=== PATIENT | female | born 1965 | race African-American/Black ===

== ENCOUNTER 2021-08-26 15:06 | Emergency (ER) | payer OTHER, SELFPAY ==
--- NOTE | ~2021-08-26 | CT_ITS ---
EXAMINATION: CT chest abdomen pelvis w con DATE: 08/26/2021 17:25 INDICATION: Right chest and abdominal pain. Fall. TECHNIQUE: Computed tomography (CT) of the chest, abdomen, and pelvis was performed with 100 mL Omnip aque 350 intravenous contrast. Automated exposure control and iterative reconstruction technique were employed. The dose-length product was 566.82 mGy-cm. COMPARISON: None FINDINGS: CHEST CT: The lungs demonstrate mild atelectasis. No pleural effusion. The heart size is normal. There are rosemarie nary artery calcifications. No pericardial effusion. There is severe cervical and mid thoracic spondy losis. ABDOMEN/PELVIS CT: The liver, gallbladder, spleen, pancreas, adrenal glands, and right kidney are normal. There is a 9 m m cyst in left kidney. There is diverticulosis of the colon without evidence of diverticulitis. There are no dilated loops of bowel. The appendix is normal. There are no pathologically enlarged lymph no elisa. There is no free intraperitoneal fluid. There is mild lumbar spondylosis. IMPRESSION: 1. No posttraumatic findings. Reviewed, dictated and finalized at location A. POLISHER
--- NOTE | ~2021-08-26 | XR_ITS ---
EXAMINATION: XR humerus RT DATE: 08/26/2021 17:18 INDICATION: Right humerus injury and pain. TECHNIQUE: 2 views of right humerus were obtained. COMPARISON: None. FINDINGS: Bone alignment is normal. No fracture. There is mild osteoarthritis of glenohumeral joint a nd severe osteoarthritis of acromioclavicular joint. IMPRESSION: 1. Polyarticular osteoarthritis. Reviewed, dictated and finalized at location A. D SERVICE ANALYST
[2021-08-26 15:09] VITALS: BP 138/87; PULSE 70; RESP 14; TEMP 36.7; O2SAT 100
--- NOTE | 2021-08-26 16:17 | ED.GENADULT ---
HPI - General Adult General Chief complaint: Fall Stated complaint: fall/ right upper arm/right side pain Time Seen by Provider: 08/26/21 15:12 Source: patient Mode of arrival: ambulatory Limitations: no limitations History of Present Illness HPI narrative: Patient presents for evaluation of pain following a fall on Wednesday of last week. She states she slipped on the ice and fell on her right side. She did not hit her head or have loss of consciousness. She reports bruising to the right upper arm and rates pain in that area as 7 out of 10 in severity. She also reports pain in the left lateral ribs and left pelvis that she rates 9/10 in severity. She states that pain in the ribs is worse with deep inspiration. She states she feels short of breath. She has a chronic cough that she attributes to smoking marijuana. She has been taking aspirin without considerable improvement in her pain. No additional complaints or concerns. Related Data Home Medications Medication Instructions Recorded Confirmed No Home Medications 08/26/21 08/26/21 Allergies Allergy/AdvReac Type Severity Reaction Status Date / Time No Known Allergies Allergy Verified 08/26/21 15:16 Review of Systems Review of Systems: CONSTITUTIONAL: Denies fever, chills, or sweats. EYES: Denies visual changes, redness, or discharge. ENT: Denies rhinorrhea, congestion, sore throat, or otalgia. CARDIOVASCULAR: Reports right sided rib pain. Denies chest pain otherwise. Denies palpitations, or edema. RESPIRATORY: Denies cough or dyspnea. GASTROINTESTINAL: Denies abdominal pain, nausea, vomiting, or diarrhea. GENITOURINARY: Denies dysuria or hematuria. SKIN: Denies rash or itching. MUSCULOSKELETAL: Reports pain in right lateral pelvis NEUROLOGIC: Denies headache, numbness, dizziness, or weakness. PSYCHIATRIC: Denies anxiety or depression. [facility] Past Medical History Medical History (Updated 08/26/21 @ 17:45 by Jr Ramirez, SHEELA, MORE) No pertinent past medical history Surgical History Surgical History No pertinent past surgical history Family History Family History Mother Family history non-contributory Social History Social History (Updated 08/26/21 @ 16:23 by Jr Ramirez, [facility], ) Smoking status: Current some day smoker Alcohol intake: current Alcohol use details: social Substance use: current Substance use type: marijuana Living arrangements: alone Gender identity (if verbalized by the patient): Female Sexual Orientation (if Verbalized by the Patient): Straight or Heterosexual Spiritual care concerns: No Exam Narrative: GENERAL: Well-appearing, well-nourished, and in no acute distress. HEAD: Normocephalic, atraumatic. EYES: PERRLA and EOMI. ENT: Nares clear, no rhinorrhea or epistaxis. Mucous membranes moist. Oropharynx without tonsillar hypertrophy exudate or other lesions. Bilateral TMs pearly smith nonbulging NECK: Supple. No adenopathy or masses. No carotid bruits or JVD CHEST: Right lateral ribs are tender to palpation. Clear to auscultation. No respiratory distress. No wheezes rales or rhonchi HEART: Regular rate and rhythm. No murmur heard. Normal peripheral pulses. ABDOMEN: Soft, tenderness noted to RUQ without rebound or guarding, nondistended, normal active bowel sounds. There is also tenderness noted over right lateral pelvis EXTREMITIES: Normal range of motion. No edema. SKIN: Ecchymosis noted to right upper arm. Skin is warm, dry, no rash. NEURO: No focal deficits. Alert and oriented x3. PSYCH: Normal mood and affect. Course Course Emergency Course: This is a 48-year-old female who presented with complaints of pain following a fall on Wednesday. On physical exam she was tender over ribs and right upper quadrant as well as over pelvis. X-ray was obtained of the right humerus that
[2021-08-26 17:00] LABS: Basophils Percent Auto 0.6 % (0.2-1.2); Eosinophils Percent Auto 0.6 % (0-4.4); Hematocrit 41.2 % (37.0-47.0); Hemoglobin 13.7 g/dL (12.0-15.0); Immature Granulocyte Absolute 0.01 K/mm3 (0.00-0.031); Immature Granulocyte Percent A 0.1 % (0-0.5); Lymphocytes Absolute Auto 3.15 K/mm3 (0.9-3.2); Lymphocytes Percent Auto 46.2 % (18.3-44.2); Mean Corpuscular HGB Conc 33.3 g/dl (32-36); Mean Corpuscular Hemoglobin 28.2 pg (26-34); Mean Corpuscular Volume 84.9 fl (80-100); Monocytes Absolute Auto 0.7 K/mm3 (0.1-0.6); Monocytes Percent Auto 10.1 % (2.6-8.5); Neutrophils Absolute Auto 2.9 K/mm3 (1.3-6.7); Neutrophils Percent Auto 42.4 % (45.5-73.1); Platelet Count Result 320 k/mm3 (150-375); Red Blood Count 4.85 M/mm3 (4.2-5.4); Red Cell Distribution Width 13.8 % (11.5-14.5); White Blood Count 6.8 K/mm3 (4.5-10.0)
[2021-08-26 17:06] LABS: Alanine Aminotransferase 17 U/L (4-35); Albumin Level 4.7 g/dL (3.5-5.1); Alkaline Phosphatase 63 U/L (38-126); Anion Gap 8 mmol/L (8-16); Aspartate Amino Transferase 30 U/L (14-36); Bilirubin,Total 0.1 mg/dL (0.2-1.3); Blood Urea Nitrogen 15 mg/dL (7-17); Calcium 9.6 mg/dL (8.4-10.2); Carbon Dioxide 27 mmol/L (22-30); Chloride 103 mmol/L (98-107); Estimated CRCL calculation 51 ml/min; Estimated Glomerular Filt Rate > 60; Glucose 104 mg/dL (65-110); Lipase 155 U/L (23-300); Potassium 3.8 mmol/L (3.4-5.0); Sodium 138 mmol/L (137-145)
[2021-08-26 17:51] LABS: Prothrombin Time 12.9 Seconds (11.1-14.7)
[2021-08-26 17:52] LABS: Partial Thromboplastin Time 30.9 SECONDS (22.3-36.8)
[2021-08-26 18:06] LABS: Add Urine Microscopic? YES; Appearance Urine Clear (Clear); Bilirubin Urine Negative (Negative); Blood Urine Negative (Negative); Color Urine Colorless (Yellow); Glucose Urine UA Negative (Negative); Ketones Urine Negative (Negative); Leukocyte Esterase Ur Trace LEU/UL (Negative); Nitrate Urine Negative (Negative); Protein Urine Negative (Negative); RBC Urine 0-2 /hpf (0-2); Squamous Epithelial Cell Urine Rare /hpf (Few); Urobilinogen Urine Negative mg/dL (<2.0); WBC Urine 0-3 /hpf
[2021-08-26 18:08] LABS: Specific Grav Ur 1.033 (1.001-1.035)
== END 2021-08-26 18:02 | disposition home or self-care (01) ==
PROVIDERS: Emergency Provider Nurse Practitioner
DX: S40.021A Contusion of right upper arm, initial encounter (principal); S30.1XXA Contusion of abdominal wall, initial encounter; S30.0XXA Contusion of lower back and pelvis, initial encounter; S20.211A Contusion of right front wall of thorax, initial encounter; F17.200 Nicotine dependence, unspecified, uncomplicated; M19.011 Primary osteoarthritis, right shoulder; W00.0XXA Fall on same level due to ice and snow, initial encounter
CPT/HCPCS: 36415; 71260; 73060; 74177; 80053; 81001; 83690; 85025; 85610; 85730; 99284; Q9967

== ENCOUNTER → 2023-09-09 10:23 | Outpatient (CLI) | payer OTHER, SELFPAY ==
--- NOTE | ~2023-09-09 | MM_ITS ---
EXAMINATION: MM screening marco BI w argenis HISTORY: Screening TECHNIQUE: Craniocaudal and mediolateral oblique 3-D tomosynthesis images were obtained and synthetic 2-D images were generated. CAD analysis was submitted and interpreted. COMPARISON: No prior mammogram is available for comparison at this institution. BREAST PARENCHYMAL COMPOSITION: Not dense: There are scattered areas of fibroglandular density. FINDINGS: There is no mammographic evidence for malignancy in the right breast. There is a small mass in the lower central aspect of the left breast, middle third. IMPRESSION: 1. Small left breast mass. 2. Additional mammographic views and possible breast ultrasound are recommended. BI-RADS Category 0: Incomplete: Needs additional imaging evaluation. Reviewed, dictated and finalized at location A. UP TECHNICIAN IMPRESSION: 1. Small left breast mass. 2. Additional mammographic views and possible breast ultrasound are recommended . BI-RADS Category 0: Incomplete: Needs additional imaging evaluation.
== END ==
PROVIDERS: PCP Physician Assistant; Visit Provider Physician Assistant
DX: Z12.31 Encounter for screening mammogram for malignant neoplasm of breast (principal); R92.8 Other abnormal and inconclusive findings on diagnostic imaging of breast
CPT/HCPCS: 77063; 77067

== ENCOUNTER 2023-11-15 09:35 | Outpatient (CLI) | payer OTHER, SELFPAY ==
--- NOTE | ~2023-11-15 | MMUS_ITS ---
EXAMINATION: MM diagnostic marco LT w argenis, US breast LT limited HISTORY: Small left breast mass reported in the lower central breasts at mid depth on September 09 24 screening mammogram examination TECHNIQUE: Additional 3-D tomosynthesis images of the left breast were performed and synthetic 2-D im ages were generated. CAD analysis was submitted and interpreted. High resolution limited left breast ultrasound was performed. COMPARISON: September 09, 2023 bilateral screening mammogram FINDINGS: MAMMOGRAPHIC FINDINGS: No reproducible suspicious mammographic mass lesion is evident. ULTRASOUND: . 4:00 7 cm from nipple: Well-circumscribed 3.3 x 6.1 x 4.9 mm complex lesion with through transmiss ion and posterior enhancement, no internal vascularity, benign in appearance 5:00 4 cm from nipple: Probable benign 2.8 x 4.5 mm lymph node Subareolar area: Septated 3.5 x 5.3 x 6 mm cyst No suspicious mass or shadowing is detected. IMPRESSION: 1. Benign findings 2. Routine annual mammographic screening is recommended BI-RADS Category 2: Benign finding(s). Reviewed, dictated and finalized at location A. IMPRESSION: 1. Benign findings 2. Routine annual mammographic screening is recommended BI-RADS Category 2: Benign finding(s).
== END 2023-11-15 09:36 ==
PROVIDERS: PCP Physician Assistant; Visit Provider Physician Assistant
DX: R92.8 Other abnormal and inconclusive findings on diagnostic imaging of breast (principal)
CPT/HCPCS: 76642; 77061; 77065; G0279

== ENCOUNTER 2024-04-20 09:05 | Emergency (ER) | payer OTHER, SELFPAY ==
--- NOTE | ~2024-04-20 | XR_ITS ---
XR knee LT min 4V Ordering provider: Christi Naidu PA-C History: . fall 2 days ago, pain . Comparison: None. FINDINGS: BONES: No acute fracture or dislocation. JOINT SPACES: Normal. Chondrocalcinosis seen in the medial and lateral menisci. SOFT TISSUES: Normal. IMPRESSION: No acute osseous abnormality left knee. Chondrocalcinosis. Reviewed, dictated and finalized at location A.
--- NOTE | ~2024-04-20 | CT_ITS ---
CT brain wo con Ordering provider: Christi Naidu PA-C History: 58 years Female with . fall, hi . Comparison: None. Technique: CT of the head without contrast. Radiation reduction technique utilized. The dose-length product was 605.33 mGy-cm. FINDINGS: BRAIN PARENCHYMA AND CSF SPACES: Old lacunar infarct in the right basal ganglia. No midline shift, ma ss effect or hemorrhage. The brain parenchyma and CSF spaces are otherwise normal. VISUALIZED PARANASAL SINUSES: Bilateral maxillary sinus disease. Bilateral ethmoid sinus disease. MASTOIDS: Well aerated. BONES: The bones appear intact. SOFT TISSUES: Visualized nasopharynx is normal. Superficial soft tissues are normal. IMPRESSION: No acute intracranial findings. Reviewed, dictated and finalized at location A.
--- NOTE | ~2024-04-20 | CT_ITS ---
CT lumbar spine wo con Ordering provider: Christi Naidu PA-C History: 58 years Female with . lbp s/p fall . Comparison: None. Technique: CT lumbar spine without contrast. Automated exposure control and iterative reconstruction technique were employed. The dose-length product was 410.13 mGy-cm. FINDINGS: VERTEBRAE: Normal height and alignment. No subluxation or visible acute fracture. DISC SPACES: Well maintained. T12-L1: No stenosis. L1-L2: No stenosis. L2-L3: No stenosis. Diffuse disc bulge. Slight narrowing of the foramina more on the right side L3-L4: No stenosis. Diffuse disc bulge with bilateral narrowing of the foramina. Left narrowing root compression. Bilateral facet joint disease. L4-L5: No stenosis. Diffuse disc bulge. Bilateral facet joint disease. L5-S1: No stenosis. Diffuse disc bulge with bilateral narrowing of the foramina and left nerve root compression. Bilateral facet joint disease. PARASPINOUS SOFT TISSUES: Mild atheromatous disease of the abdominal aorta. Bilateral sacroiliacs. IMPRESSION: No acute osseous abnormality. Reviewed, dictated and finalized at location A.
[2024-04-20 09:10] VITALS: BP 165/85; PULSE 105; RESP 18; TEMP 36.6; O2SAT 100
--- NOTE | 2024-04-20 09:21 | ED.FALL ---
HPI - Fall General Chief Complaint: Fall Stated Complaint: fall Time Seen by Provider: 04/20/24 09:09 Source: patient Mode of arrival: ambulatory Limitations: no limitations History of Present Illness HPI Narrative: Patient is a 58 y/o female who presents to the ED with c/o Fall. Patient reports she slipped and fell at work 2 days ago. She landed on her left knee. she then fell backwards onto her. She did hit side of her head on a metal bar. Denied LOC. She complains of pain to her left knee and lower back. Has been using Goody Powder at home and icing her knee without much relief. Has trouble walking due to the knee pain. Denies numbness, headaches, dizziness, bowel or bladder incontinence, saddle anesthesia. Related Data Allergies Allergy/AdvReac Type Severity Reaction Status Date / Time No Known Allergies Allergy Verified 09/24/21 14:17 Review of Systems Review of Systems: All systems reviewed & are unremarkable except as noted in HPI. All systems reviewed & are unremarkable except as noted in HPI and below PMFSH Past Medical History Medical History No pertinent past medical history Surgical History Surgical History No pertinent past surgical history Family History Family History Mother Family history non-contributory Social History Social History Smoking status: Current some day smoker Alcohol intake: current Alcohol use details: social Substance use: current Substance use type: marijuana Living arrangements: alone Gender identity (if verbalized by the patient): Female Sexual Orientation (if Verbalized by the Patient): Straight or Heterosexual Spiritual care concerns: No Exam Narrative: GENERAL: Well appearing, well-nourished, non-toxic, in no acute distress. HEAD: Normocephalic, atraumatic. RESPIRATORY: Airway patent, respirations nonlabored. Clear to auscultation bilaterally, no rales, rhonchi, wheezing. CARDIOVASCULAR: Regular rate and rhythm without murmurs, rubs, or gallops. peripheral pulses are intact and easily palpable. MUSCULOSKELETAL: No gross deformities. Tenderness palpation throughout lumbosacral region. no significant midline spinal tenderness. No palpable bony deformities. Sensation intact. Mild TTP throughout superior knee joint space. No significant swelling. Limited flexion ROM of L knee d/t pain. SKIN: Warm, dry, normal color. NEURO: A&O X3. Speech clear. Cranial nerves II-XII grossly intact. No ataxic movements. PSYCHIATRIC: Anxious, tearful. Normal interaction. Course Vital Signs Vital signs: Vital Signs Temperature 98 F 04/20/24 09:10 Pulse Rate 105 H 04/20/24 09:10 Respiratory Rate 18 04/20/24 09:10 Blood Pressure 165/85 H 04/20/24 09:10 Pulse Oximetry 100 04/20/24 09:10 Oxygen Delivery Room Air 04/20/24 09:10 Temperature 98 F 04/20/24 09:10 Pulse Rate 105 H 04/20/24 09:10 Respiratory Rate 18 04/20/24 09:10 Blood Pressure 165/85 H 04/20/24 09:10 Pulse Oximetry 100 04/20/24 09:10 Oxygen Delivery Room Air 04/20/24 09:10 MDM - Fall MDM Narrative Medical decision making narrative: Patient presented to ED status post ground level mechanical fall 2 days ago. Vital signs are stable. Patient neurologically/neurovascularly intact. She did hit her head in the fall. CT brain was obtained and negative. C-spine cleared by myself. No neck pain reported, no tenderness on exam. L knee XR negative. No fx, dislocation, or joint effusion. CT lumbar spine. Patient?s injury is consistent with musculoskeletal etiology. No signs of neurologic or vascular compromise on physical examination. Compartments are soft without signs of compartment syndrome. Consistent
[2024-04-20] MEDS: KETOROLAC (*BKC) 60 MG/2 ML VIAL IM (09:40)
[2024-04-20] MEDS: ACETAMINOPHEN 500 MG TABLET 1000 MG PO (09:40)
[2024-04-20 11:32] VITALS: BP 134/76; PULSE 68; RESP 18; O2SAT 100
== END 2024-04-20 11:33 | disposition home or self-care (01) ==
PROVIDERS: Emergency Provider Physician Assistant
DX: S86.912A Strain of unspecified muscle(s) and tendon(s) at lower leg level, left leg, initial encounter (principal); S39.012A Strain of muscle, fascia and tendon of lower back, initial encounter; S09.90XA Unspecified injury of head, initial encounter; W01.198A Fall on same level from slipping, tripping and stumbling with subsequent striking against other object, initial encounter; M11.262 Other chondrocalcinosis, left knee
CPT/HCPCS: 70450; 72131; 73564; 96372; 99284; A9270; J1885

== ENCOUNTER 2024-05-02 11:41 | Emergency (ER) | payer OTHER, SELFPAY ==
[2024-05-02 11:45] VITALS: BP 141/76; PULSE 90; RESP 18; TEMP 36.5; O2SAT 100
--- NOTE | 2024-05-02 12:53 | ED.GENADULT ---
HPI - General Adult General Chief complaint: Back Pain/Injury Stated complaint: back pain Time Seen by Provider: 05/02/24 12:09 History of Present Illness HPI narrative: 58-year-old female presented emergency department for evaluation for persistent back pain. Patient was evaluated to the emergency department last week for back pain. Patient states she has been taking Tylenol for her persistent back pain. Patient states her knee pain from the initial injury has improved but patient still describes left lower back pain that does radiate down her left buttock down her left thigh. Patient has been taking some aspirin. Patient is opposed to narcotic pain medication. She is tearful on arrival due to pain. Related Data Allergies Allergy/AdvReac Type Severity Reaction Status Date / Time No Known Allergies Allergy Verified 05/02/24 11:43 Review of Systems Review of Systems: All systems reviewed & are unremarkable except as noted in HPI and below PMFSH Past Medical History Medical History No pertinent past medical history Surgical History Surgical History No pertinent past surgical history Family History Family History Mother Family history non-contributory Social History Social History Smoking status: Current some day smoker Alcohol intake: current Alcohol use details: social Substance use: current Substance use type: marijuana Living arrangements: alone Gender identity (if verbalized by the patient): Female Sexual Orientation (if Verbalized by the Patient): Straight or Heterosexual Spiritual care concerns: No Exam Narrative: APPEARANCE: uncomfortable appearing EYES: PERRLA/EOMI, conjunctivae clear. NOSE: Normal no drainage EARS:TMS clear with good light reflex. THROAT: Pharynx clear, no exudate. NECK: Supple. No adenopathy, no masses. RESPIRATORY: Airway patent, respirations nonlabored. Clear to auscultation bilaterally, no rales, rhonchi, wheezing. CARDIOVASCULAR: Regular rate and rhythm without murmurs rubs or gallops. ABDOMINAL: Soft, nontender, nondistended, normal bowel sounds MUSCULOSKELETAL: left lower back pain radiates to left hip with tenderness over left buttock NEURO: Alert. Cranial nerves II through XII intact. Grossly intact SKIN: Warm, dry. Normal Color Course Vital Signs Vital signs: Vital Signs Temperature 97.7 F 05/02/24 11:45 Pulse Rate 90 05/02/24 11:45 Respiratory Rate 18 05/02/24 11:45 Blood Pressure 141/76 H 05/02/24 11:45 Pulse Oximetry 100 05/02/24 11:45 Temperature 98.3 F 05/02/24 13:15 Pulse Rate 88 05/02/24 13:15 Respiratory Rate 17 05/02/24 13:15 Blood Pressure 137/62 05/02/24 13:15 Pulse Oximetry 100 05/02/24 13:15 Medical Decision Making MDM Narrative Medical decision making narrative: 58-year-old female present to the emergency department for evaluation for lower back pain. Patient denies initial falls or injuries. Patient initial CT showed no acute fracture dislocation. Patient is being started on Medrol Dosepak for suspected sciatica. Patient is also advised to take Flexeril and distal Tylenol for pain control. All questions concerns were addressed patient was comfortable with plan for discharge and close follow-up. Patient was encouraged close follow-up with her primary care physician. Differential Diagnosis Differential Diagnosis: sciatica, hip strain, lower back pain, muscular strain Vital Signs Vital Signs: Vital Signs Temperature 97.7 F 05/02/24 11:45 Pulse Rate 90 05/02/24 11:45 Respiratory Rate 18 05/02/24 11:45 Blood Pressure 141/76 H 05/02/24 11:45 Pulse Oximetry 100 05/02/24 11:45 Temperature 98.3 F 05/02/24 13
[2024-05-02] MEDS: ACETAMINOPHEN 500 MG TABLET 1000 MG PO (13:02)
[2024-05-02] MEDS: CYCLOBENZAPRINE HCL 10 MG TABLET PO (13:03)
[2024-05-02] MEDS: KETOROLAC 30 MG/ML VIAL (*BKC) IM (13:03)
[2024-05-02 13:15] VITALS: BP 137/62; PULSE 88; RESP 17; TEMP 36.8; O2SAT 100
== END 2024-05-02 13:15 | disposition home or self-care (01) ==
PROVIDERS: Emergency Provider Emergency Medicine
DX: M54.42 Lumbago with sciatica, left side (principal)
CPT/HCPCS: 96372; 99283; A9270; J1885